=== PATIENT | female | born 1960 | race Caucasian/White ===

== ENCOUNTER → 2021-03-29 | Outpatient (CLI) | payer BC | END | disposition home or self-care (01) | LOC: LABWHC1 12:35 | PROVIDERS: ATTEND Nurse Practitioner Family | DX: J30.89 Other allergic rhinitis (principal) | CPT/HCPCS: 36415 ==

== ENCOUNTER → 2023-07-06 | Day surgery (SDC) | payer BC ==
[2023-07-03 14:53] VITALS: BMI 34.2
[~2023-07-06] MED LIST: LACTATED RINGERS 1,000 ML IV SCH; LIDOCAINE 1% (10MG/ML) FOR IV START INTRADERMA PRN; PROPOFOL 10 MG/ML 20 ML VIAL IV ONE
[2023-07-06 12:11] VITALS: RESP 16; TEMP 97.1
--- NOTE | 2023-07-06 12:41 | P.PCN ---
Date of Procedure: 07/06/23 Procedure(s) Performed: BRIEF HISTORY: Patient is a 62-year-old pleasant female scheduled for an elective colonoscopy as a part of evaluation of prior history of colon polyps. Her last colonoscopy was 10 years ago. PROCEDURE PERFORMED: Colonoscopy with biopsy. PREOPERATIVE DIAGNOSIS: History of colon polyps. IV sedation per Anesthesia. PROCEDURE: After informed consent was obtained, the patient, was brought into the endoscopy unit. IV sedation was administered by Anesthesia under continuous monitoring. Digital rectal examination was normal. Initially the Olympus CF-160 flexible video colonoscope was then inserted in the rectum, gradually advanced into the cecum without any difficulty. Careful examination was performed as the scope was gradually being withdrawn. Ileocecal valve and the appendiceal orifice were visualized and appeared normal. Prep was excellent. Mucosa of the cecum, appeared normal. In the ascending colon there was a 3-4 mm sessile polyp that was removed by cold biopsy. Rest of the ascending colon, transverse colon, descending colon, sigmoid colon, and rectum appeared normal. Scattered sigmoid diverticulosis. Retroflexion was performed in the rectum and no lesions were seen. The patient tolerated the procedure well. IMPRESSION: 3-4 mm ascending colon polyp status post-cold biopsy Scattered sigmoid diverticulosis RECOMMENDATIONS: Findings of this examination were discussed with the patient as well as her family. She was advised to follow with the biopsy results. If the biopsy with adenoma she can have a repeat colonoscopy in 5 years..
[2023-07-06 13:08] VITALS: BP 129/72; PULSE 67
== END | disposition home or self-care (01) ==
LOC: ORWHC2ENDO 10:58
PROVIDERS: ATTEND Internal Medicine Gastroenterology
DX: Z12.11 Encounter for screening for malignant neoplasm of colon (principal); D12.2 Benign neoplasm of ascending colon; K57.30 Diverticulosis of large intestine without perforation or abscess without bleeding; I10 Essential (primary) hypertension; E78.5 Hyperlipidemia, unspecified; F41.9 Anxiety disorder, unspecified; Z79.83 Long term (current) use of bisphosphonates; Z79.899 Other long term (current) drug therapy; Z86.010 Personal history of colon polyps
CPT/HCPCS: 88305; 45380; J2704